=== PATIENT | male | born 1955 | race Caucasian/White ===

== ENCOUNTER 2018-06-06 16:00 | Emergency (ER) | payer MEDICARE ==
[~2018-06-06] VITALS: Ht 180.3 cm; Wt 100.0 kg
[~2018-06-06 16:00] MED LIST: ATENOLOL25 MG PO; ATIVAN0.5 MG OR; AUGMENTIN400 MG OR; BAYER LOW81 MG OR; BENICAR40 MG OR; CEPHALEXIN500 MG OR; CLARITIN10 M1 PO; FISH OIL1000 MG OR; HYDROCHLORO25 MG/TAB PO; ISOSORB MONO30 MG PO; LORTAB 5 OR; MEDDOSEPAK PO; NITROGLYCER0.4 MG/HR TD; NORVASC2.5 MG OR; OMEGA-31000 MG OR; PEPCID20 MG PO; SERTRALINE25 MG PO; SIMVASTATIN10 MG PO; VITAMIN D5000 UNIT
[2018-06-06] MEDS ORDERED: CEPHALEXIN500 M1 PO (16:22)
[2018-06-06 17:57] VITALS: BP 128/83
== END 2018-06-06 18:05 | disposition home or self-care (01) ==
LOC: ED 16:00
PROC: 0HQDXZZ Repair Right Lower Arm Skin, External Approach (ICD-10-PCS; principal; 2018-06-06)
DX: S51.811A Laceration without foreign body of right forearm, initial encounter (principal); W01.198A Fall on same level from slipping, tripping and stumbling with subsequent striking against other object, initial encounter; Y93.89 Activity, other specified; Y92.009 Unspecified place in unspecified non-institutional (private) residence as the place of occurrence of the external cause

== ENCOUNTER → 2018-06-18 | Outpatient (REF) | payer MEDICARE ==
[~2018-06-18] MED LIST changes: +CEPHALEXIN500 M1 PO
[2018-06-18 11:50] LABS: HEMATOCRIT 45.5 % (39.0-50.0); HEMOGLOBIN 15.1 g/dl (14.0-18.0); IMMATURE GRANULOCYTES 0.6 % (0.0-5.0); MEAN CELL VOLUME 90.1 fL CALC (80.0-100.0); MEAN CORPUSCULAR HGB 29.9 pG CALC (26.0-32.0); MEAN CORPUSCULAR HGB CONC 33.2 g/L CALC (32.0-36.0); NEUT# 3.05 thou/uL (1.82-7.42); RED BLOOD COUNT 5.05 mill/uL (4.70-6.10); RED CELL DISTRI WIDTH 12.1 % (11.5-15.5)
[2018-06-18 12:30] LABS: ALBUMIN 4.2 g/dL (3.2-5.0); ALKALINE PHOSPHATASE 83 u/l (38-126); ANION GAP 17 (6-22 (CALC)); BILIRUBIN, TOTAL 1.3 mg/dL (0.0-1.4); BUN 18 mg/dL (8-23); BUN/CREATININE RATIO 17 (12-20 (CALC)); CALCULATED LDLCHOLESTEROL 105 mg/dL (62-129 (CALC)); CARBON DIOXIDE 23 mmol/l (22-30); CHLORIDE 105 mmol/l (95-108); CHOLESTEROL HDL RATIO 4.1 (<4.4 (CALC)); GFR > 60 ML/MIN (>=60 (CALC)); GFR FOR AFR.AMER. > 60 ML/MIN (>=60 (CALC)); HDL CHOLESTEROL 42 mg/dL (>=40); POTASSIUM 4.7 mmol/l (3.5-5.1); SGOT/AST 19 u/l (19-48); SODIUM 140 mmol/l (137-146); TOTAL PROTEIN 7.2 g/dL (6.3-8.2); TOTAL TRIGLYCERIDES 135 mg/dl (30-149); VLDL CHOLESTROL 27 mg/dl (4-45 (CALC))
[2018-06-18 12:42] LABS: TOTAL CHOLESTEROL 174 mg/dl (0-199)
[2018-06-18 12:51] LABS: TSH, 3RD GENERATION 1.61 uIU/mL (0.47 - 4.68)
== END | disposition home or self-care (01) ==
LOC: LABSPEC 10:48
PROVIDERS: ATTEND Nurse Practitioner Family
DX: I10 Essential (primary) hypertension (principal); R53.81 Other malaise; E78.2 Mixed hyperlipidemia

== ENCOUNTER 2018-08-27 11:28 | Emergency (ER) | payer MEDICARE ==
[~2018-08-27] VITALS: Ht 180.3 cm; Wt 102.0 kg
[2018-08-27 12:43] LABS: HEMATOCRIT 44.3 % (39.0-50.0); HEMOGLOBIN 14.6 g/dl (14.0-18.0); IMMATURE GRANULOCYTES 0.4 % (0.0-5.0); MEAN CELL VOLUME 88.6 fL CALC (80.0-100.0); MEAN CORPUSCULAR HGB 29.2 pG CALC (26.0-32.0); NEUT# 3.98 thou/uL (1.82-7.42); RED CELL DISTRI WIDTH 12.1 % (11.5-15.5)
[2018-08-27 13:27] LABS: ALBUMIN 4.4 g/dL (3.2-5.0); ALKALINE PHOSPHATASE 84 u/l (38-126); ANION GAP 13 (6-22 (CALC)); BILIRUBIN, TOTAL 1.5 mg/dL (0.0-1.4); BUN 13 mg/dL (8-23); BUN/CREATININE RATIO 14 (12-20 (CALC)); CARBON DIOXIDE 23 mmol/l (22-30); CHLORIDE 107 mmol/l (95-108); CREATININE 0.9 mg/dL (0.7-1.3); GFR > 60 ML/MIN (>=60 (CALC)); GFR FOR AFR.AMER. > 60 ML/MIN (>=60 (CALC)); LIPASE 166 u/l (23-300); POTASSIUM 4.4 mmol/l (3.5-5.1); SGOT/AST 23 u/l (19-48); SODIUM 139 mmol/l (137-146); TOTAL PROTEIN 7.4 g/dL (6.3-8.2)
[2018-08-27] MEDS ORDERED: DELTASONE20 MG PO (14:09)
[2018-08-27] MEDS ORDERED: TORADOL PO (14:09)
[2018-08-27 14:26] VITALS: BP 135/89
== END 2018-08-27 14:26 | disposition home or self-care (01) ==
LOC: ED 11:28 → ED-I 14:04 → ED 14:26
PROVIDERS: Emergency Medicine
DX: R07.89 Other chest pain (principal); I10 Essential (primary) hypertension

== ENCOUNTER 2019-04-03 11:38 | Emergency (ER) | payer MEDICARE ==
[~2019-04-03] VITALS: Ht 180.3 cm; Wt 98.0 kg
[~2019-04-03 11:38] MED LIST changes: +DELTASONE20 MG PO; -NORVASC2.5 MG OR; +NORVASC5 M1 PO; +TORADOL PO
[2019-04-03 12:14] LABS: HEMATOCRIT 41.9 % (39.0-50.0); HEMOGLOBIN 13.8 g/dl (14.0-18.0); IMMATURE GRANULOCYTES 0.7 % (0.0-5.0); MEAN CORPUSCULAR HGB 29.3 pG CALC (26.0-32.0); MEAN CORPUSCULAR HGB CONC 32.9 g/L CALC (32.0-36.0); NEUT# 6.98 thou/uL (1.82-7.42); RED BLOOD COUNT 4.71 mill/uL (4.70-6.10); RED CELL DISTRI WIDTH 12.6 % (11.5-15.5)
[2019-04-03 12:32] LABS: ALBUMIN 4.3 g/dL (3.2-5.0); ALKALINE PHOSPHATASE 80 u/l (38-126); ANION GAP 15 (6-22 (CALC)); BILIRUBIN, TOTAL 1.5 mg/dL (0.0-1.4); BUN 12 mg/dL (8-23); BUN/CREATININE RATIO 13 (12-20 (CALC)); CARBON DIOXIDE 23 mmol/l (22-30); CHLORIDE 103 mmol/l (95-108); CREATININE 0.9 mg/dL (0.7-1.3); GFR > 60 ML/MIN (>=60 (CALC)); GFR FOR AFR.AMER. > 60 ML/MIN (>=60 (CALC)); POTASSIUM 4.4 mmol/l (3.5-5.1); SGOT/AST 27 u/l (19-48); SODIUM 137 mmol/l (137-146); TOTAL PROTEIN 7.9 g/dL (6.3-8.2)
[2019-04-03] MEDS ORDERED: TAM75CAP PO (12:52)
[2019-04-03] MEDS ORDERED: ROBITUSSIN AC10 ML PO (12:52)
[2019-04-03 13:18] VITALS: BP 136/75
== END 2019-04-03 13:18 | disposition home or self-care (01) ==
LOC: ED 11:38
PROVIDERS: Emergency Medicine
DX: J11.1 Influenza due to unidentified influenza virus with other respiratory manifestations (principal); I10 Essential (primary) hypertension; I25.2 Old myocardial infarction